=== PATIENT | female | born 1985 | race Caucasian/White ===

== ENCOUNTER 2016-12-18 16:49 | Emergency (ER) | payer OTHER | END 2016-12-18 19:47 | disposition left against medical advice (07) | LOC: UCCORT 16:49 | DX: M54.9 Dorsalgia, unspecified (principal); Z53.21 Procedure and treatment not carried out due to patient leaving prior to being seen by health care provider ==

== ENCOUNTER 2017-09-15 13:11 | Emergency (ER) | payer OTHER ==
--- NOTE | 2017-09-15 15:57 | UC ---
Upper Extremity HPI - HPI Summary HPI Summary: pt states she fell about 1 month ago and had "muscle ache" in the right shoulser after. this past wednesday, she fell again and injured the shoulder again. no head, neck or back injury. - History of Current Complaint Chief Complaint: UCUpperExtremity Stated Complaint: RT SHOULDER PAIN S/P FALL 2 WKS AGO Time Seen by Provider: 09/15/17 15:35 Hx Obtained From: Patient Hx Last Menstrual Period: 09/13/17 ?: No Onset/Duration: Sudden Onset Severity Initially: Moderate Severity Currently: Moderate Pain Intensity: 6 Character: Sharp, Aching Aggravating Factor(s): Movement Associated Signs And Symptoms: Negative: Swelling, Redness, Numbness/Tingling - Allergies/Home Medications Allergies/Adverse Reactions: Allergies Allergy/AdvReac Type Severity Reaction Status Date / Time shellfish derived Allergy Anaphylatic Verified 09/15/17 14:15 Shock Sulfa (Sulfonamide Allergy Rash Verified 09/15/17 14:15 Antibiotics) Home Medications: Home Medications NK [No Home Medications Reported] 09/15/17 [History Confirmed 09/15/17] PMH/Surg Hx/FS Hx/Imm Hx Previously Healthy: Yes - Surgical History Surgical History: Yes Surgery Procedure, Year, and Place: knee surgery, gall bladder. essure - Family History Known Family History: Positive: None - Social History Lives: With Family Alcohol Use: Rare Substance Use Type: None Smoking Status (MU): Heavy Every Day Tobacco Smoker Type: Cigarettes Amount Used/How Often: 1/2 - 1 ppd Length of Time of Smoking/Using Tobacco: 10 years Household Exposure Type: Cigarettes - Immunization History Most Recent Influenza Vaccination: no Vaccination Up to Date: Yes Review of Systems Constitutional: Negative Skin: Negative Eyes: Negative ENT: Negative Respiratory: Negative Cardiovascular: Negative Gastrointestinal: Negative Genitourinary: Negative Motor: Negative Neurovascular: Negative Musculoskeletal: Other: - R shoulder pain Neurological: Negative Psychological: Negative Is Patient Immunocompromised?: No All Other Systems Reviewed And Are Negative: Yes Physical Exam Triage Information Reviewed: Yes Vital Signs: Initial Vital Signs Temp 97.6 F 09/15/17 14:17 Pulse 73 09/15/17 14:17 Resp 16 09/15/17 14:17 BP 145/97 09/15/17 14:17 Pulse Ox 100 02/14/18 14:17 Vital Signs Reviewed: Yes Eyes: Positive: Conjunctiva Clear ENT: Positive: Normal ENT inspection Neck: Positive: Supple, Nontender, No Lymphadenopathy Respiratory: Positive: Chest non-tender, Lungs clear, Normal breath sounds Cardiovascular: Positive: RRR, No Murmur Abdomen Description: Positive: Nontender, No Organomegaly, Soft Bowel Sounds: Positive: Present Musculoskeletal: Positive: Other: - RUE= shoulder without gross deformity, swelling or discoloration. genralized tenderness but no crepitation. decreased abduction due to pain with + drop arm. - anterior stress. elbow, forearm, wrist and hand are atraumatic with full s/v/m function. Neurological Exam: Normal Neurological: Positive: Alert Psychological Exam: Normal Skin Exam: Normal Diagnostics - Laboratory Diagnostic Studies Completed/Ordered: shoulder xray=nad Upper Extremity Course/Dx - Course Course Of Treatment: R shoulder pain. no fx/dislocation. limited abduction and + from arm thus possible rotator cuff injury thus will sling and refer to orthopedics. - Differential Dx/Diagnosis Provider Diagnoses: Acute R shoulder pain. Probable rotator cuff injury Discharge - Discharge Plan Condition: Stable Disposition: HOME Patient Education Materials: Rotator Cuff Injury (ED) Referrals: Chaparro Toussaint MD [Medical Doctor] - As Soon As Possible Sheryl Morley [Primary Care Provider] - As Soon As Possible
--- NOTE | 2017-09-15 16:35 | RAD ---
Indication: RIGHT shoulder pain post falls in the past 2 weeks. Comparison: No relevant prior exams available on the [facility] for comparison. Technique: Internal rotation AP, external rotation Grashey, scapular Y, axillary views RIGHT shoulder Report: Normal acromioclavicular and glenohumeral joint alignment. Negative for fracture. No significant arthropathic change evident. Negative for stigmata of calcific tendinopathy. Unremarkable soft tissue contours. IMPRESSION: Negative radiographic exam of the RIGHT shoulder.
[2017-09-15] MEDS ORDERED: Naproxen TAB* 250 MG PO ONE (16:43)
[2017-09-15 16:47] VITALS: BP 145/83
== END 2017-09-15 16:58 | disposition home or self-care (01) ==
LOC: UCCORT 13:11
DX: M25.511 Pain in right shoulder (principal); F17.210 Nicotine dependence, cigarettes, uncomplicated; W19.XXXA Unspecified fall, initial encounter; Y93.9 Activity, unspecified; Y92.9 Unspecified place or not applicable
CPT/HCPCS: 99213; A9270-GY; G0463

== ENCOUNTER 2017-11-29 08:11 | Emergency (ER) | payer OTHER ==
[2017-11-29 08:37] VITALS: BP 162/112
--- NOTE | 2017-11-29 08:52 | UC ---
Throat Pain/Nasal Shant HPI - HPI Summary HPI Summary: Pt presents with c/o nasal congestion, sinus pressure and pain, and bilateral ears "plugged" X 9 weeks. - History of Current Complaint Chief Complaint: UCGeneralIllness Stated Complaint: SINUSES,CONGESTION Time Seen by Provider: 11/29/17 08:33 Hx Obtained From: Patient Hx Last Menstrual Period: 11/08/17 ?: No Onset/Duration: Gradual Onset, Lasting Weeks - 9, Still Present Severity: Moderate Pain Intensity: 8 Cough: Nonproductive Associated Signs & Symptoms: Positive: Sinus Discomfort - Epiglottits Risk Factors Epiglottis Risk Factors: Negative - Allergies/Home Medications Allergies/Adverse Reactions: Allergies Allergy/AdvReac Type Severity Reaction Status Date / Time shellfish derived Allergy Anaphylatic Verified 11/29/17 08:30 Shock Sulfa (Sulfonamide Allergy Rash Verified 11/29/17 08:30 Antibiotics) Home Medications: Home Medications Acetaminophen TAB* [Tylenol TAB*] 500 mg PO Q4H PRN 11/29/17 [History Confirmed 11/29/17] Phenylephrine HCl [Sinus PE Decongestant] 10 mg PO DAILY PRN 11/29/17 [History Confirmed 11/29/17] PMH/Surg Hx/FS Hx/Imm Hx Previously Healthy: Yes - Surgical History Surgical History: Yes Surgery Procedure, Year, and Place: knee surgery, gall bladder. essure - Family History Known Family History: Positive: Cardiac Disease - Social History Occupation: Employed Full-time Lives: With Family Alcohol Use: Rare Substance Use Type: None Smoking Status (MU): Heavy Every Day Tobacco Smoker Type: Cigarettes Amount Used/How Often: 1/2 - 1 ppd Length of Time of Smoking/Using Tobacco: 10 years Have You Smoked in the Last Year: Yes Household Exposure Type: Cigarettes - Immunization History Most Recent Influenza Vaccination: no Vaccination Up to Date: Yes Review of Systems Constitutional: Fatigue Skin: Negative Eyes: Negative ENT: Ear Ache, Sinus Congestion, Sinus Pain/Tenderness Respiratory: Cough Cardiovascular: Negative Gastrointestinal: Negative Genitourinary: Negative Motor: Negative Neurovascular: Negative Musculoskeletal: Negative Neurological: Headache Psychological: Negative Is Patient Immunocompromised?: No All Other Systems Reviewed And Are Negative: Yes Physical Exam Triage Information Reviewed: Yes Appearance: Ill-Appearing Vital Signs: Initial Vital Signs Temp 97.8 F 11/29/17 08:21 Pulse 85 11/29/17 08:21 Resp 20 11/29/17 08:21 BP 162/112 11/29/17 08:21 Pulse Ox 100 11/29/17 08:21 Vital Signs Reviewed: Yes Eye Exam: Normal ENT Exam: Other ENT: Positive: Nasal congestion, Sinus tenderness Dental Exam: Normal Neck exam: Normal Respiratory Exam: Normal Cardiovascular Exam: Normal Musculoskeletal Exam: Normal Neurological Exam: Normal Psychological Exam: Normal Skin Exam: Normal Throat Pain/Nasal Course/Dx - Differential Dx/Diagnosis Differential Diagnosis/HQI/PQRI: Sinusitis, URI Provider Diagnoses: sinusitis. bilateral ear ache Discharge - Sign-Out/Discharge Documenting (check all that apply): Discharge/Admit/Transfer - Discharge Plan Condition: Stable Disposition: HOME Prescriptions: Amoxicillin PO (*) [Amoxicillin 875 MG (*)] 875 mg PO Q12H #20 tab Benzonatate CAP* [Tessalon 100 MG CAP*] 100 mg PO Q8H PRN #21 cap PRN Reason: Cough Cetirizine HCl/Pseudoephedrine [Zyrtec-D Tablet] 1 each PO DAILY #10 tab Patient Education Materials: Sinusitis (ED) Referrals: Sheryl Morley [Primary Care Provider] - Additional Instructions: Please follow up with your PCP or return to clinic as needed. Please note that your blood pressure was elevated at today's visit. Please follo colleenp with your pCP regarding this finding as soon as possible. - Billing Disposition and Condition Condition: STABLE Disposition: HOME
== END 2017-11-29 09:05 | disposition home or self-care (01) ==
LOC: UCCORT 08:11
DX: J32.9 Chronic sinusitis, unspecified (principal); H92.03 Otalgia, bilateral; F17.210 Nicotine dependence, cigarettes, uncomplicated; Z88.2 Allergy status to sulfonamides
CPT/HCPCS: 99212; G0463

== ENCOUNTER 2019-02-15 12:00 | Emergency (ER) | payer OTHER ==
[2019-02-15 12:23] VITALS: BP 151/95
--- NOTE | 2019-02-15 12:33 | UC ---
Skin Complaint HPI - HPI Summary HPI Summary: 33-year-old female comes in with a chief complaint of a rash on the right forearm. Yesterday she was cleaning a couch and had a sudden onset of a small bump on her right forearm which she felt was an insect bite. Since that time it 's been itching more and redness has been spreading. Benadryl which has a little bit with the itching but not very much. No fevers or chills and no drainage. The area has gotten erythematous and spread on the forearm. Mildly tender to palpation. - History of Current Complaint Chief Complaint: UCSkin Time Seen by Provider: 02/15/19 12:26 Stated Complaint: BUG BITE Hx Last Menstrual Period: 01/20/19 Pain Intensity: 6 - Allergy/Home Medications Allergies/Adverse Reactions: Allergies Allergy/AdvReac Type Severity Reaction Status Date / Time shellfish derived Allergy Anaphylatic Verified 02/15/19 12:24 Shock Sulfa (Sulfonamide Allergy Rash Verified 02/15/19 12:24 Antibiotics) Home Medications: Home Medications Cholecalciferol (Vitamin D3) [Vitamin D3] 50,000 unit PO FR 02/15/19 [History Confirmed 02/15/19] Sertraline* [Zoloft*] 50 mg PO DAILY 02/15/19 [History Confirmed 02/15/19] busPIRone TAB* [Buspar TAB*] 10 mg PO TID PRN 02/15/19 [History Confirmed ] metFORMIN* [Glucophage 500 MG TAB *] 500 mg PO BID 02/15/19 [History Confirmed 02/15/19] PMH/Surg Hx/FS Hx/Imm Hx Previously Healthy: Yes Endocrine History: Diabetes - Surgical History Surgical History: Yes Surgery Procedure, Year, and Place: knee surgery, gall bladder. essure - Family History Known Family History: Positive: None, Cardiac Disease - Social History Alcohol Use: Rare Substance Use Type: None Smoking Status (MU): Heavy Every Day Tobacco Smoker Type: Cigarettes Amount Used/How Often: 1 ppd Length of Time of Smoking/Using Tobacco: 10 years Have You Smoked in the Last Year: Yes Household Exposure Type: Cigarettes - Immunization History Most Recent Influenza Vaccination: no Vaccination Up to Date: Yes Review of Systems All Other Systems Reviewed And Are Negative: Yes Constitutional: Positive: Negative Skin: Positive: Other - SEE HPI Eyes: Positive: Negative ENT: Positive: Negative Respiratory: Positive: Negative Cardiovascular: Positive: Negative Gastrointestinal: Positive: Negative Genitourinary: Positive: Negative Motor: Positive: Negative Neurovascular: Positive: Negative Musculoskeletal: Positive: Negative Neurological: Positive: Negative Psychological: Positive: Negative Is Patient Immunocompromised?: No Physical Exam Triage Information Reviewed: Yes Appearance: Well-Appearing, No Pain Distress, Well-Nourished Vital Signs: Initial Vital Signs Temp 99.2 F 02/15/19 12:14 Pulse 84 02/15/19 12:14 Resp 18 02/15/19 12:14 BP 151/95 02/15/19 12:14 Pulse Ox 99 02/15/19 12:14 Vital Signs Reviewed: Yes Eye Exam: Normal Eyes: Positive: Conjunctiva Clear Neck: Positive: Supple Respiratory: Positive: No respiratory distress Musculoskeletal: Positive: Strength Intact, ROM Intact Neurological: Positive: Alert, Muscle Tone Normal Psychological Exam: Normal Psychological: Positive: Age Appropriate Behavior Skin: Positive: Other - Of the right forearm there is a 5 cm diameter area of erythema that is blanching and mildly tender to palpation. There is a punctate area in the middle. No foreign body seen. No streaking. Forearm has full range of motion says is the finger in the elbow. Course/Dx - Course Course Of Treatment: Given the acute onset and the circumstances most likely this is a localized allergic reaction however the possibility of cellulitis exists. Therefore we' ll treat with both Keflex and Medrol Dosepak. I let the patient know that if it starts streaking or she get fever she needs to stop the steroid and continue with the antibiotic. Overall she's getting worse she needs to get reevaluated. - Diagnoses Provider Diagnosis: Insect bite Discharge - Sign-Out/Discharge Documenting (check all that apply): Patient Departure All imaging exams completed and their final reports reviewed: No Studies - Discharge Plan Condition: Stable Disposition: HOME Prescriptions: Cephalexin CAP* [Keflex CAP*] 500 mg PO TID #30 cap methylPREDNISolone [Medrol Dosepak 4 MG*] 0 mg PO .SEE [employer]TE[employer] INSTRUCTION #1 [place] Patient Education Materials: Insect Bite or Sting (ED) Referrals: Sheryl Morley [Primary Care Provider] - Additional Instructions: FOLLOW UP WITH YOUR DOCTOR IF NOT COMPLETELY IMPROVED. GET REEVALUATED SOONER IF WORSE; SPREAD OF RASH, FEVER, YOU FEEL ILL OR ANY QUESTIONS OR CONCERNS. - Billing Disposition and Condition Condition: STABLE Disposition: Home
== END 2019-02-15 12:38 | disposition home or self-care (01) ==
LOC: UCCORT 12:00
DX: S50.861A Insect bite (nonvenomous) of right forearm, initial encounter (principal); W57.XXXA Bitten or stung by nonvenomous insect and other nonvenomous arthropods, initial encounter; Y92.9 Unspecified place or not applicable; Z88.1 Allergy status to other antibiotic agents; E11.9 Type 2 diabetes mellitus without complications; Z79.84 Long term (current) use of oral hypoglycemic drugs; F17.210 Nicotine dependence, cigarettes, uncomplicated
CPT/HCPCS: 99212; G0463